=== PATIENT | female | born 1990 | race African-American/Black ===

== ENCOUNTER 2019-11-14 10:12 | Emergency (ER) | payer OTHER ==
[~2019-11-14] VITALS: Ht 162.6 cm; Wt 93.9 kg
[~2019-11-14 10:12] MED LIST: BENADRYL25 MG PO; FLAGYL500 MG PO; MEDROL DOSPAK21 TA1 PO; NOHOMEMEDICATIONS; PERMETHRIN60 GM TOP; PHENERGAN 25 MG25 M1 PO; PHENERGAN25 MG RE; PREDNISONE50 MG PO; TRI-SPRINTEC1 EACH PO; ZOFRAN 4 MG ORAL4 M1 DIS
[2019-11-14] MEDS ORDERED: PROTONIX40 M2 PO (10:24)
[2019-11-14] MEDS ORDERED: ENBRACE HR SOF1 EACH PO (10:25)
[2019-11-14] MEDS ORDERED: PROAIR HFA8.5 GM INH (10:25)
[2019-11-14] MEDS ORDERED: SYMBICORT80 MCG/4.1 INH (10:25)
[2019-11-14 12:38] VITALS: BP 127/82
== END 2019-11-14 12:41 | disposition home or self-care (01) ==
LOC: ER 10:12
DX: O20.0 Threatened abortion (principal); O99.511 Diseases of the respiratory system complicating pregnancy, first trimester; J45.909 Unspecified asthma, uncomplicated; Z79.899 Other long term (current) drug therapy; Z91.018 Allergy to other foods; Z3A.08 8 weeks gestation of pregnancy